=== PATIENT | male | born 1990 | race Caucasian/White ===

== ENCOUNTER 2016-12-21 10:23 | Emergency (ER) | payer MEDICAID ==
[2016-12-21 10:52] VITALS: BP 139/75
[2016-12-21] MEDS ORDERED: Cephalexin 500 MG Cap PO ONE (11:05)
--- NOTE | 2016-12-21 11:11 | EDM.PDOC ---
ED HPI GENERAL MEDICAL PROBLEM - General Chief Complaint: Lower Extremity Injury/Pain Stated Complaint: LEFT THUMB Time Seen by Provider: 12/21/16 10:25 Source of Information: Reports: Patient History Limitations: Reports: No Limitations - History of Present Illness INITIAL COMMENTS - FREE TEXT/NARRATIVE: 26 years old w anai came to the ed 5 days after he squeezed his left thumb between metals at home. Pt noticed some pain and an open wound and was adviced to come to the ed by his SO. Pt denied F/C loss of fuction. He has mild discomfort when he applies pressure to his affected area at his thump. No other acute medical issues at this time Onset: Unknown/Unsure Onset Date: 12/17/16 Onset Time: 08:00 Duration: Constant Location: Reports: Upper Extremity, Left Quality: Reports: Dull Severity: Mild Improves with: Reports: Rest Worsens with: Reports: Movement Context: Reports: Trauma left thumb Pain Score (Numeric/FACES): 1 - Related Data Allergies Allergy/AdvReac Type Severity Reaction Status Date / Time No Known Allergies Allergy Verified 12/21/16 10:44 Home Meds: Home Meds Cephalexin [Keflex] 500 mg PO Q6HR #40 cap 12/21/16 [Rx] Past Medical History HEENT History: Reports: None Cardiovascular History: Reports: None Respiratory History: Reports: None Gastrointestinal History: Reports: Cholelithiasis Genitourinary History: Reports: Other (See Below) Other Genitourinary History: CONDYLOMA ACUMINATUM OF PENIS Musculoskeletal History: Reports: Back Pain, Chronic, Fracture Neurological History: Reports: None Psychiatric History: Reports: Anxiety, Depression Endocrine/Metabolic History: Reports: None Hematologic History: Reports: None Immunologic History: Reports: None Oncologic (Cancer) History: Reports: None Dermatologic History: Reports: None - Infectious Disease History Infectious Disease History: Reports: Chicken Pox - Past Surgical History HEENT Surgical History: Reports: Oral Surgery Cardiovascular Surgical History: Reports: None Respiratory Surgical History: Reports: None GI Surgical History: Reports: Cholecystectomy Neurological Surgical History: Reports: None Social & Family History - Family History Family Medical History: Noncontributory - Tobacco Use Smoking Status *Q: Current Every Day Smoker Years of Tobacco use: 12 Packs/Tins Daily: 1 - Caffeine Use Caffeine Use: Reports: Soda - Recreational Drug Use Recreational Drug Use: Yes Recreational Drug Type: Reports: Marijuana/Hashish Recreational Drug Use Frequency: Socially Review of Systems - Review of Systems Review Of Systems: See Below Constitutional: Reports: No Symptoms Eyes: Reports: No Symptoms Ears: Reports: No Symptoms Nose: Reports: No Symptoms Mouth/Throat: Reports: No Symptoms Respiratory: Reports: No Symptoms Cardiovascular: Reports: No Symptoms GI/Abdominal: Reports: No Symptoms Genitourinary: Reports: No Symptoms Musculoskeletal: Reports: No Symptoms Skin: Reports: Wound (left thumb) Neurological: Reports: No Symptoms Psychiatric: Reports: No Symptoms ED EXAM, GENERAL - Physical Exam Exam: See Below Exam Limited By: No Limitations General Appearance: Alert, WD/WN, No Apparent Distress Eye Exam: Bilateral Eye: Normal Inspection Ears: Normal External Exam Ear Exam: Bilateral Ear: Auricle Normal Nose: Normal Inspection, Normal Mucosa Throat/Mouth: Normal Inspection Head: Atraumatic, Normocephalic Neck: Normal Inspection, Supple, Non-Tender Respiratory/Chest: No Respiratory Distress, Lungs Clear Cardiovascular: Normal Peripheral Pulses, Regular Rate, Rhythm Peripheral Pulses: 1+: Radial (L), Radial (R) GI/Abdominal: Normal Bowel Sounds (Male) Exam: Deferred Rectal (Males) Exam: Deferred Back Exam: Normal Inspection, Full Range of Motion Extremities: Normal Inspection, Normal Range of Motion, Non-Tender, No Pedal Edema Neurological: Alert, Oriented, CN II-XII Intact, Normal Cognition, Normal Gait, No Motor/Sensory Deficits Psychiatric: Normal Affect, Normal Mood Skin Exam: Warm, Dry, Normal Color, No Rash, Rash (wound left thumb distal phalanx plantar aspect) Lymphatic: No Adenopathy Course - Vital Signs Text/Narrative:: 26 years old w m came to the ed 5 days after he squeezed his left thumb between metals at home. Pt noticed some pain and an open wound and was adviced to come to the ed by his SO. Pt denied F/C loss of fuction. He has mild discomfort when he applies pressure to his affected area at his thump. No other acute medical issues at this time PE: abrasion/minor lac left dist phalanx of thumb, volar aspect, FROM Imaging: Not indicated Impression: Minor LAC and abrasion left thumb > 5 days old Tx: Pt was offered wound care. However, he refused and was discharged with instructions Plan: D/C with instructions Last Recorded V/S: Last Vital Signs Temp 36.8 C 12/21/16 10:25 Pulse 85 12/21/16 10:25 Resp 14 12/21/16 10:25 BP 139/75 12/21/16 10:25 Pulse Ox 100 12/21/16 10:25 - Orders/Labs/Meds Meds: Medications Discontinued Medications Generic Name Dose Route Start Last Admin Trade Name Freq PRN Reason Stop Dose Admin Cephalexin 500 mg 12/21/16 11:05 12/21/16 11:26 Keflex PO 12/21/16 11:06 Not Given ONETIME ONE Departure - Departure Time of Disposition: 11:08 Disposition: Home, Self-Care 01 Condition: Good Clinical Impression: Laceration - Discharge Information Prescriptions: Cephalexin [Keflex] 500 mg PO Q6HR #40 cap Instructions: Laceration Care, Adult, [id number] Referrals: PCP,None [Primary Care Provider] - Forms: ED Department Discharge Additional Instructions: Please keep the wound dry and clean, please take Keflex as recommended, please f /u, come back if your symptoms get worse acutely.
== END 2016-12-21 11:20 | disposition home or self-care (01) ==
LOC: FB.ED 10:23
DX: S61.012A Laceration without foreign body of left thumb without damage to nail, initial encounter (principal); X58.XXXA Exposure to other specified factors, initial encounter; F17.210 Nicotine dependence, cigarettes, uncomplicated
CPT/HCPCS: 99283